=== PATIENT | female | born 1990 | race Caucasian/White ===

== ENCOUNTER 2023-09-15 07:31 | Day surgery (SDC) | payer OTHER, SELFPAY ==
[2023-09-10 12:09] VITALS: BMI 27.6
[2023-09-15] VITALS (7 sets, daily range): BP systolic 100–118; BP diastolic 61–71; PULSE 73–87; RESP 15–18; TEMP 36.1–36.7; O2SAT 98–100; BMI 27.6
--- NOTE | 2023-09-15 | PATH_ITS ---
[facility] Accession Number: [id number] No. of containers..01 Tissue . 01 Material submitted: . uterus - UTERUS,BILATERAL FALLOPIAN TUBES . 01 Diagnosis: Uterus, Bilateral Fallopian Tubes, Hysterectomy and Bilateral Salpingectomies (Weight 27 gramws): Disordered proliferative endometrium with patchy glandular crowding; negative for cytologic atypia or malignancy. Myometrium with no significant histomorphologic abnormality. A minute, benign subserosal leiomyoma (2 mm in greatest dimension). First described fallopian tube, complete cross sections, with a benign paratubal cyst (11 mm in greatest dimension); negative for significant atypia. Second described fallopian tube, complete cross sections, with a benign paratubal cyst (9 mm in greatest dimension); negative for significant atypia. [facility] 09/25/2023 1624 Local . 01 Electronically signed: . Adriana Guzmán MD, Pathologist NPI- [id number] . 01 Gross description: . The specimen is received in formalin labeled with the patient's name, , and uterus, bilateral fallopian tubes, consists of a disrupted, fragmented uterus without cervix weighing 27 grams and measuring 4.5 cm from superior to inferior, 6.2 cm from medial to lateral, and 3.3 cm from anterior to posterior. The serosa is kerr and smooth with a single small serosal nodule measuring 0.2 x 0.1 x 0.1 cm. The endometrium is brown and velvety, averaging 0.1 cm thick, with no lesions identified. The myometrium is pink-kerr, trabecular, and measuring approximately 1.5 cm in presumed maximum thickness with no nodules or lesions identified. . The first fallopian tube is intact with violaceous, smooth serosa, and a pedunculated cystic structure at the fimbriated end measuring 1.1 cm in greatest dimension and filled with kerr serous fluid. Sectioning reveals an unremarkable stellate lumen. . The second fallopian tube has detached fimbria and is reapproximated to measure 6.4 x 0.8 cm. The serosa is kerr and smooth with a cystic structure near the fimbriated end measuring 0.9 cm in greatest dimension filled with kerr serous fluid. Sectioning reveals an unremarkable stellate lumen. . [employer] sections are submitted as follows: A1-A2: Full thickness sections. A3: Serosa with nodule. A4: First fallopian tube to include one-half of bisected fimbriae and cross sections. A5: Second fallopian tube to include one-half of bisected fimbriae and cross sections. ([id number]) /MRV 09/25/2023 1624 Local . 01 Pathologist provided ICD-10: N94.6, N92.1 . 01 CPT . 324702 Specimen Comment: A courtesy copy of this report has been sent to [phone] Performed at: [address] [facility] [address] [place] [address], [place], [place] [id number] MD Truman Hanna MD Phone: [phone]
[2023-09-15] MEDS: ACETAMINOPHEN 325 MG TABLET 975 MG PO (07:50)
[2023-09-15] MEDS: LACTATED RINGERS 1,000 ML 42 ML IV ×2 (07:50→10:52)
[2023-09-15] MEDS: SCOPOLAMINE 1 PATCH TOP (08:50)
--- NOTE | 2023-09-15 09:42 | PM.PREOP ---
Pre-operative Note Interval Note History & Physical reviewed/Exam performed by Physician: Yes Changes to H&P: No H&P completed within 30 days and has changed as indicated here:: 09/08/23
[2023-09-15] MEDS: CEFAZOLIN 2 GM/100 ML PREMIX 100 ML IV (09:57)
--- NOTE | 2023-09-15 10:17 | SUR.OPER ---
Lithotomy on padded OR bed. [place] Pad Positioner under torso. Head on pillow, arms padded and tucked at sides. Legs secured in padded yellow fins stirrups.
[2023-09-15] MEDS: BUPIVACAINE 0.5% (PF) 30 ML, EPINEPHrine 0.15 MG INJ (10:54)
--- NOTE | 2023-09-15 11:12 | P.OP_ITS ---
Operative Date/Time/Diagnoses Date of procedure: 09/15/23 Time of procedure: 11:12 Pre-op diagnosis: Dysmenorrhea Menorrhagia Family history of endometriosis Post-op diagnosis: same Procedure & Clinicians Procedure: Procedures Operation Date: 09/15/23 09:00 Actual Procedure Side Surgeon p Laparoscopic Supracervical Hysterectomy with bilateral salpingectomy, treatment of endometriosis Not Applicable Lynnette Brock MD Indications: 32-year-old 0 with severe dysmenorrhea and menorrhagia. Also strong family history of endometriosis. Surgeon: Lynnette Brock Data Analytics Architect: Maribel Beltran Anesthesia Type: General and Local Operative Notes Findings: 7 week size anteverted uterus Normal ovaries bilaterally Bilateral paratubal cysts Normal appendix Normal liver and gallbladder Closure Type: primary Specimen(s): left tube, right tube and uterus Applied: catheter (Removed at the end of the case) Estimated blood loss (mL): 25 Blood products transfused: none Procedure in detail: The patient was taken to the operating room where she was placed in the dorsal supine position. After adequate general endotracheal anesthesia was achieved, she was placed in the dorsal lithotomy position, and prepped and draped in the usual sterile fashion. A timeout was performed. A bivalve speculum was placed into the vagina and the anterior lip of the cervix grasped with a single-tooth tenaculum. The cervical os was sequentially dilated until the ZUMI uterine manipulator could pass easily into the endometrial cavity. The single-tooth tenaculum was removed from the anterior lip of the cervix, and the bivalve speculum was removed from the vagina. Attention was then turned to the abdomen where 6 mL of half percent Marcaine with epinephrine were injected in the umbilical fold. A 5 mm incision was made. The Verees needle was placed into the peritoneal cavity, and its placement confirmed by aspiration and drop test. The Verees needle was removed. A 5 mm trocar was placed without difficulty. 2 other incisions were made 4 cm lateral to the umbilicus after 5 mL of half percent Marcaine with epinephrine were injected. These were 5 mm incisions. Two 5 mm trocars were placed under direct visualization. The right tube was grasped with an atraumatic grasper. Using the power seal, the mesosalpinx was cauterized and cut all the way down to the cornua of the uterus. The cornua of the uterus was then grasped with an atraumatic grasper. The utero-ovarian ligaments were cauterized and cut. The round ligament and broad ligament was cauterized and cut with the power seal. Hemostasis was achieved. The bladder flap was created using the power seal with cautery and cut alf across. The uterine arteries on the right side were extensively cauterized with the power seal. All of this was repeated on the left side. The remainder of the bladder flap was created using the power seal, and the bladder taken down off the lower uterine segment and cervix. Using the [place], the cervix was amputated from the uterus 2 cm above the uterosacral ligaments, after the ZUMI uterine manipulator was removed from the uterus. There was a small amount of bleeding noted from the posterior edge of the cervix, and this was cauterized with the spatula cautery for hemostasis. A sponge stick was placed into the vagina. The spatula cautery was used to extensively cauterize the endocervical canal. 6 mL of half percent Marcaine with epinephrine were injected above the pubic symphysis. A 12 mm trocar was placed. An Endobag was placed through the suprapubic trocar and the uterus and tubes were placed into the Endobag. The trocar was removed. The edges of the bag were brought up through the skin. The uterus was grasped with a Love. The Livan placed into the endobag. The uterus was hand morcellated in approximately 5 pieces. The Endobag with the Livan were removed from the peritoneal cavity. The pelvis was copiously irrigated with warm normal saline. No bleeding was noted. 20 cc of 0.2% ropivacaine were placed over the pedicles. The instruments were removed from the abdomen. The CO2 was allowed to escape. The suprapubic incision was closed on the fascia with 0 Vicryl. All of the incisions were closed with 4-0 Biosyn in a subcuticular fashion. Steri-Strips and Allevyn dressings were placed. The moistened sponge stick was removed from the vagina. Sponge, lap, and instrument counts were correct x-2. The patient tolerated the procedure well, was taken to PACU in stable condition. Complications: none Post-operative Condition: stable Disposition: PACU Plan for aftercare: Home after recovery
[2023-09-15] MEDS: OXYCODONE IR 5 MG TABLET PO ×2 (11:33→12:05)
[2023-09-15] MEDS: hydrOXYzine 50 MG/ML INJ 25 MG IM (12:04)
== END 2023-09-15 12:57 | disposition home or self-care (01) ==
LOC: OR 07:33 → AC 07:34
PROVIDERS: Referring Provider Obstetrics & Gynecology; Visit Provider Obstetrics & Gynecology
PROC: 0UT94ZL Resection of Uterus, Supracervical, Percutaneous Endoscopic Approach (ICD-10-PCS; CPT 58542; principal; 2023-09-15 09:00)
DX: N94.6 Dysmenorrhea, unspecified (principal); N92.0 Excessive and frequent menstruation with regular cycle; D25.2 Subserosal leiomyoma of uterus; N83.8 Other noninflammatory disorders of ovary, fallopian tube and broad ligament
CPT/HCPCS: 58542; 81025; J0171; J0330; J0690; J1100; J1885; J2405; J2704; J3010; J3410

== ENCOUNTER 2023-10-15 12:28 | Emergency (ER) | payer OTHER, SELFPAY ==
[2023-10-15 12:32] VITALS: BP 131/74; PULSE 108; RESP 20; TEMP 37.4; O2SAT 99; BMI 24.3
[2023-10-15 12:51] VITALS: PULSE 110; O2SAT 96
[2023-10-15 12:54] VITALS: BP 129/72; PULSE 109; RESP 16; O2SAT 98
[2023-10-15 12:56] LABS: Add Manual Diff / Slide Review NO; Basophils Absolute Auto 0 /uL (0-100); Basophils Percent Auto 0.8 % (0-2); Eosinophils Absolute Auto 300 /uL (0-450); Eosinophils Percent Auto 4.8 % (2-4); Hematocrit 39.5 % (36-46); Hemoglobin 13.7 g/dL (12.0-16.0); Lymphocytes Absolute Auto 1900 /uL (1100-4500); Lymphocytes Percent Auto 33.2 % (25-40); Mean Corpuscular HGB Conc 34.5 % (30-36); Mean Corpuscular Hemoglobin 30.2 PG (26-34); Mean Corpuscular Volume 87.5 fL (80-100); Monocytes Absolute Auto 300 /uL (0-900); Neutrophils Absolute Auto 3200 /uL (1500-7000); Neutrophils Percent Auto 55.2 % (50-75); Platelet Count 202 X10^3/uL (150-400); Red Blood Cell Count 4.52 X10^6/uL (4.0-5.2); Red Cell Distribution Width 12.2 % (11.6-14.8); White Blood Cell Count 5.7 X10^3/uL (4.5-11.0)
--- NOTE | 2023-10-15 12:56 | ED.ABDPAIN ---
HPI - Abdominal Pain General Chief Complaint: Abdominal Pain Stated Complaint: fall, hip px Time Seen by Provider: 10/15/23 12:51 Source: patient and family Mode of arrival: Wheelchair History of Present Illness HPI narrative: Patient is a 32-year-old female post hysterectomy 6 weeks, she would partial hysterectomy on 09/15/2023 for treatment of endometriosis. She reports that she has been a slow recovery she has been nauseous she has been sore. She recently was moving and lifting boxes. This morning she went to take her dog out for a walk when he pulled her and she fell backwards. She now is having excruciating pain across her lower abdomen. She has been Motrin for pain currently it has not helping. She still feel nauseous. Related Data Home Medications Medication Instructions Recorded Confirmed bupropion HCl 150 mg 24 hr tablet, 150 mg PO QAM 09/08/23 10/14/23 extended release (Wellbutrin XL) loratadine 10 mg tablet 10 mg PO DAILY 09/08/23 10/14/23 meloxicam 15 mg tablet 15 mg PO DAILY 09/08/23 10/14/23 methocarbamol 500 mg tablet 500 mg PO QID 09/08/23 10/14/23 acetaminophen 325 mg tablet 325 mg PO PRN PRN Abdominal Pain 09/15/23 10/14/23 Previous Rx's Medication Instructions Recorded scopolamine base 1 mg over 3 days 1 patch transdermal Q3D PRN nausea 09/19/23 transdermal patch and vomiting #10 ea oxycodone 5 mg tablet 5 mg PO Q4H PRN pain #14 tabs 09/29/23 Allergies Allergy/AdvReac Type Severity Reaction Status Date / Time No Known Drug Allergies Allergy Verified 10/14/23 14:49 Patient History Medical History ADHD Family History Grandmother History of heart disease Hypertension Hyperlipidemia Social History household members: spouse Smoking Status: Former smoker alcohol intake: current Smoking Status: Former smoker alcohol intake frequency: holidays/special occasions only Substance Use Type: does not use Exam Initial Vital Signs Initial Vital Signs: Vital Signs Temperature 99.3 F 10/15/23 12:32 Pulse Rate 108 H 10/15/23 12:32 Respiratory Rate 20 10/15/23 12:32 Blood Pressure 131/74 10/15/23 12:32 Pulse Oximetry 99 10/15/23 12:32 Oxygen Delivery Method Room Air 10/15/23 12:32 GENERAL: Very weak 32-year-old female HEENT: Head atraumatic,EOMI, pupils reactive, face symmetric, moist mucous membranes CARDIOVASCULAR: Regular rate and rhythm without murmurs, rubs or gallops. RESPIRATORY: Breath sounds equal bilaterally, no wheezes rales or rhonchi. ABDOMEN: Soft, tender across lower abdomen incision sites clean and dry no erythema no distention EXTREMITIES: Normal range of motion, no clubbing or edema. Neurovascularly intact NEUROLOGICAL: Alert and oriented x4. Moving all extremities SKIN: Warm, dry, no laceration, no petechiae, no rashes or lesions. Course Orders Ordered: ED Orders 10/15/23 12:45 Complete Blood Count AUTO DIFF Stat Comprehensive Metabolic Panel Stat Lipase Stat 10/15/23 12:57 CT abdomen pelvis w con Stat Discontinued Medications Ondansetron HCl (Ondansetron 4 Mg Odt) 4 mg PO NOW PRN PRN Reason: Nausea And Vomiting Ondansetron HCl (Ondansetron 4 Mg/2 Ml Inj) 4 mg IV NOW PRN PRN Reason: Nausea And Vomiting Last Admin: 10/15/23 12:57 Dose: 4 mg Documented By: REESE Vital Signs Vital signs: Vital Signs - 8 hr 10/15/23 12:32 10/15/23 12:51 10/15/23 12:54 Temperature 99.3 F Pulse Rate 108 H 110 H Respiratory Rate 20 Blood Pressure 131/74 129/72 Pulse Oximetry 99 96 Oxygen Delivery Method Room Air 10/15/23 12:54 10/15/23 13:00 10/15/23 13:00 Temperature Pulse Rate 109 H 98 H Respiratory Rate 16 18 Blood Pressure 117/67 Pulse Oximetry 98 98 Oxygen Delivery Method 10/15/23 13:30 10/15/23 14:00 Temperature Pulse Rate 93 H 86 Respiratory Rate 12 15 Blood Pressure 122/62 Pulse Oximetry 99 99 Oxygen Delivery Method MDM - Abdominal Pain Lab Data 10/15/23 12:45 10/15/23 12:45 Labs: Lab Results 12/27/23 Range/Units 12:45 WBC 5.7 (4.5-11.0) X10^3/uL RBC 4.52 (4.0-5.2) X10^6/uL Hgb 13.7 (12.0-16.0) g/dL Hct 39.5 (36-46) % MCV 87.5 (80-100) fL MCH 30.2 (26-34) PG MCHC 34.5 (30-36) % RDW 12.2 (11.6-14.8) % Plt Count 202 (150-400) X10^3/uL Neut % (Auto) 55.2 (50-75) % Lymph % (Auto) 33.2 (25-40) % [place] % (Auto) 6.0 (3-14) % Eos % (Auto) 4.8 H (2-4) % Baso % (Auto) 0.8 (0-2) % Neut # (Auto) 3200 (8874-1462) /uL Lymph # (Auto) 1900 (2517-1445) /uL [place] # (Auto) 300 (0-900) /uL Eos # (Auto) 300 (0-450) /uL Baso # (Auto) 0 (0-100) /uL Sodium 137 (137-145) mmol/L Potassium 4.0 (3.4-5.1) mmol/L Chloride 104 (98-107) mmol/L Carbon Dioxide 26 (22-32) mmol/L BUN 2 L (7-17) mg/dL Creatinine 0.67 (0.52-1.04) mg/dL Estimated GFR > 60 (>60) mL/min BUN/Creatinine Ratio 3.0 L (6-22) Glucose 102 H (70-100) mg/dL Calcium 9.8 (8.4-10.2) mg/dL Total Bilirubin 0.5 (0.2-1.3) mg/dL AST 24 (14-36) IU/L ALT 24 (<35) IU/L Alkaline Phosphatase 46 (38-126) U/L Total Protein 7.6 (6.3-8.2) g/dL Albumin 4.5 (3.5-5.0) g/dL Globulin 3.1 (1.7-4.1) g/dL Albumin/Globulin Ratio 1.5 (1.0-2.8) Lipase 123 (23-300) U/L Point of care testing: Urine Dip Bedside Urine Glucose Negative Bedside Urine Bilirubin - Negative Bedside Urine Ketone - Negative Urine Specific [place] 1.010 Bedside Urine Occult Blood - Negative Bedside Urine pH 7.0 Bedside Urine Protein - Negative Bedside Urine Urobilinogen - Negative Bedside Urine Nitrite - Negative Bedside Urine Leukocytes - Negative Esterase Imaging Data CT scan - abdomen/pelvis: Radiologist's Impression: PROCEDURE: CT ABDOMEN PELVIS W CON INDICATIONS: lower ab pain post hysterectomy TECHNIQUE: After the administration of intravenous contrast, axial sections acquired from the lung bases to the pubic symphysis. Coronal and sagittal reformats were performed. For radiation dose reduction, the following was used: automated exposure control, adjustment of mA and/or kV according to patient size. COMPARISON: None. FINDINGS: Image quality: Diagnostic. Lower Chest: No significant findings. ABDOMEN: Liver: No solid mass. Gallbladder: No radiopaque gallstones or wall thickening. Biliary ducts: No biliary dilation. Pancreas: No ductal dilation. Spleen: Size is within normal limits. Adrenal Glands: No adrenal nodules. Kidneys and Ureters: No hydronephrosis. No solid mass. No complex renal cystic lesion which requires follow up. Stomach and Bowel: Normal colonic caliber, without significant wall thickening. There is a large amount of stool in colon mild diffuse colonic wall thickening is noted involving the splenic flexure and descending colon suspicious for colitis. Peritoneum: No abnormal intraperitoneal fluid. No free air. Ventral Wall: No hernia. Abdominal Nodes: No retroperitoneal or mesenteric adenopathy by size criteria. Vessels: Aorta and inferior vena cava are normal in size. PELVIS: Pelvic Organs: There is a prominent hysterectomy stump or cervix. There is a small amount of free fluid in the cul-de-sac. No organized fluid collections to suggest abscess. There is a 2 cm cyst in the right ovary. Left ovary is not well seen. Bladder: Unremarkable. Pelvic Nodes: No enlarged lymph nodes. Miscellaneous: No inguinal hernias are seen. Bones: Mild levoscoliosis. No aggressive osseous abnormality. IMPRESSION: 1. There is diffuse colonic wall thickening involving the splenic flexure and descending colon consistent with colitis. 2. A small amount free fluid in the cul-de-sac. No horn fluid collections in pelvis to suggest abscess. Dictated by: You Grayson M.D. on 10/15/2023 at 13:58 MDM Narrative Medical decision making narrative: Patient 32-year-old male presents today increasing abdominal pain post hysterectomy after a fall today. She does report that she was moving quite a bit on [place] and having Increased lower abdominal pain. Blood work reviewed overall reassuring no leukocytosis no anemia no electrolyte abnormality no [place]. Imaging shows diffuse colonic wall thickening in the splenic flexure and descending colon consistent with colitis and a small amount of free fluid in the cul-de-sac On exam patient is not specifically tender in the left upper quadrant. She has no leukocytosis or fever. Pain significantly worse after her fall and moving. I do not think related to colitis. I do not think she would benefit from antibiotics at this time. Recommend resting decreased activity and lifting. Pain can be controlled with Tylenol and Motrin. Discharge Plan Departure Patient Disposition: Home Clinical Impression: Colitis Instructions: DI for Colitis Activity Restrictions/Additional Instructions: *You have been diagnosed with colitis *What to do: At this time there was no complication from her surgery. You do have some inflammation in your intestine. This can resolve on its own. However you may require antibiotics if it should continue or you get a fever. At this time no heavy lifting nothing greater than 10 lb. *Continue to take medications as directed Continue Tylenol Motrin as prescribed *Follow up with your primary care provider in 2-3 days or call [phone] Brock *Return to ER if you should have increasing pain fever vomiting or any new, worsening or concerning symptoms Prescriptions: No Action scopolamine base 1 mg over 3 days patch 3 day 1 patch transdermal Q3D PRN (Reason: nausea and vomiting) Qty: 10 0RF loratadine 10 mg tablet 10 mg PO DAILY bupropion HCl [Wellbutrin XL] 150 mg tablet extended release 24 hr 150 mg PO QAM methocarbamol 500 mg tablet 500 mg PO QID meloxicam 15 mg tablet 15 mg PO DAILY oxycodone 5 mg tablet 5 mg PO Q4H PRN (Reason: pain) Qty: 14 0RF acetaminophen 325 mg tablet 325 mg PO PRN PRN (Reason: Abdominal Pain) Referrals: [facility] [Primary Care Provider] - Stand Alone Forms: Patient Portal/API
[2023-10-15] MEDS: ONDANSETRON 4 MG/2 ML INJ IV (12:57)
[2023-10-15 13:00] VITALS: BP 117/67; PULSE 98; RESP 18; O2SAT 98
[2023-10-15 13:07] LABS: Alanine Aminotransferase 24 IU/L (<35); Albumin 4.5 g/dL (3.5-5.0); Albumin Globulin Ratio 1.5 (1.0-2.8); Alkaline Phosphatase 46 U/L (38-126); Aspartate Aminotransferase 24 IU/L (14-36); Bilirubin Total 0.5 mg/dL (0.2-1.3); Calcium 9.8 mg/dL (8.4-10.2); Carbon Dioxide 26 mmol/L (22-32); Chloride 104 mmol/L (98-107); Estimated Glomerular Filt Rate > 60 mL/min (>60); Globulin 3.1 g/dL (1.7-4.1); Glucose 102 mg/dL (70-100); HEMOLYSIS 33 (0-50); Lipase 123 U/L (23-300); Sodium 137 mmol/L (137-145); Total Protein 7.6 g/dL (6.3-8.2)
[2023-10-15 13:08] LABS: Blood Urea Nitrogen 2 mg/dL (7-17)
[2023-10-15 13:30] VITALS: PULSE 93; RESP 12; O2SAT 99
[2023-10-15 14:00] VITALS: BP 122/62; PULSE 86; RESP 15; O2SAT 99
== END 2023-10-15 14:34 | disposition home or self-care (01) ==
PROVIDERS: Emergency Provider Emergency Medicine
DX: K52.9 Noninfective gastroenteritis and colitis, unspecified (principal); R10.9 Unspecified abdominal pain; W18.30XA Fall on same level, unspecified, initial encounter; Z90.710 Acquired absence of both cervix and uterus
CPT/HCPCS: 36415; 74177; 80053; 81003; 83690; 85025; 96374; 99284; J2405; Q9967